=== PATIENT | female | born 1950 | race Caucasian/White ===

== ENCOUNTER 2020-09-17 07:05 | Emergency (ER) | payer OTHER ==
[~2020-09-17] VITALS: Ht 149.9 cm; Wt 52.2 kg
[2020-09-17] MEDS ORDERED: SODIUM CHLORIDE 0.9% 1,000 ML IV ONE (07:45)
[2020-09-17] MEDS ORDERED: MORPHINE SULFATE 4 MG/ML SYR/VIAL IV ONE (07:45)
[2020-09-17] MEDS ORDERED: ONDANSETRON HCL 4 MG/2 ML VIAL IV ONE (07:45)
[2020-09-17 07:49] LABS: Basophils # (auto) 0.2 10 ^3/uL (0-0.2); Basophils % (auto) 1.3 % (0.0-2.0); Eosinophils # (auto) 0 10 ^3/uL (0-0.8); Eosinophils % (auto) 0.2 % (0.0-7.0); Hematocrit 35.6 % (36.0-46.0); Hemoglobin 12.5 g/dL (12.2-16.2); Lymphocytes # (auto) 2.9 10 ^3/uL (0.4-5.4); Lymphocytes % (auto) 16.2 % (10.0-50.0); Mean Corpuscular Hemoglobin 30.3 pg (28.0-32.0); Mean Corpuscular Hgb Conc. 35.1 g/dL (32.0-36.0); Mean Corpuscular Volume 86.3 fL (80.0-100.0); Monocytes # (auto) 0.9 10 ^3/uL (0-1.3); Monocytes % (auto) 4.9 % (0.0-12.0); Neutrophils # (auto) 13.6 10 ^3/uL (1.6-8.6); Neutrophils % (auto) 77.4 % (37.0-80.0); Nucleated Red Blood Cells % 0.1 %; Platelet Count (auto) 337 10^3/uL (140-450); Red Blood Cells 4.13 10^6/uL (4.0-5.20); Red Cell Distribution Width 12.5 % (11.8-14.3); White Blood Cell 17.6 10^3/uL (4.4-10.8)
[2020-09-17 08:02] LABS: Albumin 3.6 g/dL (3.4-5.0); Calcium 9.2 mg/dL (8.5-10.1); Potassium 3.1 mmol/L (3.5-5.1)
[2020-09-17 08:06] LABS: BUN/Creatinine Ratio 35.6; Bilirubin, Total 0.9 mg/dL (0.2-1.0); Total Protein 7.6 g/dL (6.4-8.2)
[2020-09-17] MEDS ORDERED: AMIT25TA9 PO (08:33)
[2020-09-17] MEDS ORDERED: ATOR20TA PO (08:33)
[2020-09-17] MEDS ORDERED: LOSA25TA38 PO (08:33)
[2020-09-17] MEDS ORDERED: LABETALOL HCL 5 MG/ML 4ML SYRINGE IV ONE (09:00)
[2020-09-17] MEDS ORDERED: hydrALAZINE HCL 20 MG/ML VL ONE (09:09)
[2020-09-17] MEDS ORDERED: hydrALAZINE HCL 20 MG/ML VL IV ONE (09:15)
[2020-09-17 09:53] VITALS: BP 170/76
== END 2020-09-17 10:17 | disposition home or self-care (01) ==
LOC: ER 07:05
DX: S06.5X0A Traumatic subdural hemorrhage without loss of consciousness, initial encounter (principal); I10 Essential (primary) hypertension; Z79.899 Other long term (current) drug therapy; W01.198A Fall on same level from slipping, tripping and stumbling with subsequent striking against other object, initial encounter; Y93.89 Activity, other specified; Y92.89 Other specified places as the place of occurrence of the external cause; Y99.8 Other external cause status
CPT/HCPCS: 36415; 70450; 80053; 85025; 96374; 96375; 99285; J0360; J2270; J2405

== ENCOUNTER 2020-09-24 20:10 | Emergency (ER) | payer OTHER ==
[~2020-09-24] VITALS: Ht 149.9 cm; Wt 45.4 kg
[~2020-09-24 20:10] MED LIST: AMIT25TA9 PO; ATOR20TA PO; LOSA25TA38 PO
[2020-09-24 21:15] LABS: Basophils # (auto) 0.2 10 ^3/uL (0-0.2); Eosinophils # (auto) 0.6 10 ^3/uL (0-0.8); Monocytes # (auto) 1.3 10 ^3/uL (0-1.3)
[2020-09-24 21:19] LABS: Eosinophils % (auto) 3.4 % (0.0-7.0); Hematocrit 38.1 % (36.0-46.0); Hemoglobin 13.5 g/dL (12.2-16.2); Lymphocytes # (auto) 5.9 10 ^3/uL (0.4-5.4); Lymphocytes % (auto) 35.5 % (10.0-50.0); Mean Corpuscular Hemoglobin 30.7 pg (28.0-32.0); Mean Corpuscular Hgb Conc. 35.3 g/dL (32.0-36.0); Mean Corpuscular Volume 86.9 fL (80.0-100.0); Monocytes % (auto) 7.9 % (0.0-12.0); Neutrophils # (auto) 8.8 10 ^3/uL (1.6-8.6); Neutrophils % (auto) 52.2 % (37.0-80.0); Platelet Count (auto) 589 10^3/uL (140-450); Red Blood Cells 4.39 10^6/uL (4.0-5.20); Red Cell Distribution Width 12.9 % (11.8-14.3); White Blood Cell 16.8 10^3/uL (4.4-10.8)
[2020-09-24 21:34] LABS: INR 1.1 (0.9-1.15); Partial Thromboplastin Time 20.5 sec (23.0-31.2)
[2020-09-24 21:38] LABS: Albumin 3.8 g/dL (3.4-5.0); BUN/Creatinine Ratio 32.7; Bilirubin, Total 0.5 mg/dL (0.2-1.0); Calcium 9.9 mg/dL (8.5-10.1); Total Protein 8.1 g/dL (6.4-8.2)
[2020-09-24 21:40] LABS: Potassium 2.5 mmol/L (3.5-5.1)
[2020-09-24 22:51] VITALS: BP 124/92
== END 2020-09-24 23:05 | disposition short-term general hospital (02) ==
LOC: ER 20:16
DX: S06.5X9D Traumatic subdural hemorrhage with loss of consciousness of unspecified duration, subsequent encounter (principal); R41.0 Disorientation, unspecified; I10 Essential (primary) hypertension; Z20.822 Contact with and (suspected) exposure to COVID-19; Z86.73 Personal history of transient ischemic attack (TIA), and cerebral infarction without residual deficits; Z91.81 History of falling; W18.39XD Other fall on same level, subsequent encounter
CPT/HCPCS: 36415; 70450; 80053; 85025; 85049; 85610; 85730; 87426; 99291